=== PATIENT | male | born 1990 | race Caucasian/White ===

== ENCOUNTER → 2016-12-17 | Outpatient (CLI) | payer OTHER ==
--- NOTE | 2016-12-17 16:22 | ECHO ---
DATE OF PROCEDURE: 12/17/2016 AGE: 26 GENDER: Male HEIGHT: 67 inches WEIGHT: 142 pounds BODY SURFACE AREA: 1.75 sq m OUTPATIENT REFERRING PHYSICIAN: Dr. Yeimy Chaney INDICATION: Pectus excavatum. MEASUREMENTS: 2D MEASUREMENTS: RV: 4.2 cm LV: 4.2 cm Septum: 1.1 cm Posterior wall: 1.1 cm Aortic root: 2.6 cm LA: 3.0 cm LVEF: 65% DOPPLER MEASUREMENTS: AV: 1.2 m/s LVOT: 1.0 m/s LVOT diameter: 2.1 cm MV-E: 100 A: 44 E/A ratio: 2.4 Early mitral deceleration time: 211 ms E prime: 10 A prime: 8 E/E prime ratio: 10 PV: 0.8 m/s Pulmonary artery acceleration time: 123 ms PASP: 24 mmHg IVC: 1.9 cm COMMENTS: Normal sinus rhythm/sinus bradycardia without intraventricular conduction disturbance. Normal cardiac chamber sizes and wall thickness. On real-time imaging from the parasternal and apical projections, wall motion was symmetric and normal. Normal appearing mitral valvular apparatus and leaflet excursion with no posterior systolic buckling. Three equal size aortic cusps with normal thickness mildly thickened cusp edges but adequate cusp separation. Normal aortic root size. No apparent intracardiac mass or pericardial effusion. Color flow Doppler study taken from the parasternal and apical projections showed, trace mitral, and trace tricuspid but no aortic insufficiency. Guided continuous wave Doppler of his aortic valve showed a normal peak systolic velocity against left ventricular (LV) outflow tract obstruction. Pulsed and continuous wave Doppler of his LV inflow tract taken from the apical four-chamber projection showed normal diastolic filling velocities against mitral stenosis. There was a normal filling pattern against LV diastolic dysfunction. Current estimated mean left atrial pressure, within normal limits. Pulsed and continuous wave Doppler of his pulmonary trunk showed a normal peak systolic velocity against right ventricular (RV) outflow tract obstruction. There was a normal physiological amount of pulmonic insufficiency. His pulmonary acceleration time was normal against an elevated pulmonary vascular resistance. We attempted to further estimate his right ventricular systolic pressure using guided continuous wave Doppler of his tricuspid valve but could not get a clear spectral envelope with his insufficiency. His inferior vena cava was of normal size with normal respiratory collapse. CONCLUSIONS: Despite the patient's chest wall deformity, echocardiographic finding are within normal limits. In particular, there is no sign of myxomatous proliferation of the mitral valve or prolapse, and right heart chambers are normal in size with normal pulmonary pressure. MTDD
== END ==
LOC: M CARPUL 08:37
PROVIDERS: ATTEND Physician Assistant
DX: Q67.6 Pectus excavatum (principal)

== ENCOUNTER 2017-05-21 19:49 | Emergency (ER) | payer OTHER ==
[~2017-05-21] VITALS: Ht 167.6 cm; Wt 72.7 kg
[2017-05-21] MEDS ORDERED: TETRACAINE 0.5% OPHTH SOLN 4ML OS ONE (21:15)
[2017-05-21] MEDS ORDERED: IRRIGATION OPHTH SOLN (EYE WASH) 120ML OS ONE (21:15)
[2017-05-21] MEDS ORDERED: FLUORESCEIN OPHTH 1 MG STRIP OS ONE (21:15)
[2017-05-21] MEDS ORDERED: ERYTOIN8 OS (21:20)
[2017-05-21 21:38] VITALS: BP 131/72
== END 2017-05-21 21:39 | disposition home or self-care (01) ==
LOC: M ED 19:49
DX: T15.02XA Foreign body in cornea, left eye, initial encounter (principal); X58.XXXA Exposure to other specified factors, initial encounter; Y92.89 Other specified places as the place of occurrence of the external cause; Y93.89 Activity, other specified; Y99.8 Other external cause status; F17.210 Nicotine dependence, cigarettes, uncomplicated